=== PATIENT | male | born 1990 | race Caucasian/White ===

== ENCOUNTER 2016-10-06 21:23 | Emergency (ER) | payer SELFPAY ==
[2016-10-06 23:43] LABS: Hematocrit 44 % (42-52); Hemoglobin 14.5 g/dl (14.0-18.0); Mean Corpuscular HGB Conc 33 g/dl (31-36); Mean Corpuscular Hemoglobin 29 pg (27-31); Mean Corpuscular Volume 89 fL (80-94); Mean Platelet Volume 11 um3 (7.4-10.4); Red Blood Count 4.98 10^6/ul (4.0-5.4); Red Cell Distribution Width 14 % (10.5-15); White Blood Count 6.8 10^3/ul (3.5-10.8)
[2016-10-06 23:47] LABS: Add Diff/Slide Review? Slide Review Added; Comments Flag Yes
[2016-10-06 23:59] LABS: Troponin I 0.01 ng/mL (<0.04)
[2016-10-07] LABS: BUN/Creatinine Ratio 16.7 (8-20); Calcium 9.3 mg/dL (8.6-10.3); EGFR African American 113.5 (>60); EGFR Non-African American 88.3 (>60); Globulin 2.2 g/dL (2-4); Total Bilirubin 0.3 mg/dL (0.2-1.0); Total Protein 6.2 g/dL (6.4-8.9)
[2016-10-07 00:33] LABS: TSH (Thyroid Stimulating Horm) 5.46 mcIU/mL (0.34-5.60)
--- NOTE | 2016-10-07 00:50 | ED ---
GI/ HPI - HPI Summary HPI Summary: 26M presents with heart palpations that occurred three days ago and STD testing. He states his palpitations lasted 5 minutes. He states he has had this before but it has never lasted this long. He denies any chest pain or SOB. He denies any dizziness, abdominal pain, n/v/d/c, penile discharge. He states he potential has a rash near his genitalia. - History of Current Complaint Chief Complaint: EDGeneral Time Seen by Provider: 10/06/16 22:14 Stated Complaint: IRREGULAR HEART RATE/STD TEST Pain Intensity: 0 - Allergy/Home Medications Allergies/Adverse Reactions: Allergies Allergy/AdvReac Type Severity Reaction Status Date / Time No Known Allergies Allergy Verified 03/11/12 12:30 PMH/Surg Hx/FS Hx/Imm Hx Cardiovascular History: Denies: Hx Pacemaker/ICD, Other Cardiovascular Problems/Disorders Respiratory History: Denies: Hx Asthma Sensory History: Denies: Hx Hearing Aid Psychiatric History: Denies: Hx Eating Disorder, Hx Panic Disorder - Surgical History Surgery Procedure, Year, and Place: APPY Infectious Disease History: No Infectious Disease History: Denies: Traveled Outside the in Last 30 Days - Family History Known Family History: Negative: Renal Disease - Social History Alcohol Use: None Hx Substance Use: No Substance Use Type: Reports: None, Marijuana Hx Tobacco Use: No Smoking Status (MU): Never Smoked Tobacco Review of Systems Negative: Fever Positive: Palpitations - resolved. Negative: Chest Pain Negative: Shortness Of Breath Positive: Other - STD testing All Other Systems Reviewed And Are Negative: Yes Physical Exam Triage Information Reviewed: Yes Vital Signs On Initial Exam: Initial Vitals Temp Pulse Resp BP Pulse Ox 98.3 F 85 16 145/80 98 10/06/16 21:47 10/06/16 21:47 10/06/16 21:47 10/06/16 21:47 10/06/16 21:47 Vital Signs Reviewed: Yes Appearance: Positive: Well-Appearing Skin: Positive: Warm, Dry Head/Face: Positive: Normal Head/Face Inspection Eyes: Positive: Normal, Conjunctiva Clear Respiratory/Lung Sounds: Positive: Clear to Auscultation, Breath Sounds Present Cardiovascular: Positive: Normal, RRR Abdomen Description: Positive: Nontender, Soft Bowel Sounds: Positive: Present - [place] Coma Scale Coma Scale Total: 15 Diagnostics - Vital Signs Vital Signs Temp Pulse Resp BP Pulse Ox 10/06/16 23:00 84 18 126/72 99 10/06/16 22:50 89 19 130/71 99 10/06/16 22:20 101 22 98 10/06/16 21:47 98.3 F 85 16 145/80 98 - Laboratory Lab Results: Lab Results 10/06/16 10/06/16 Range/Units 23:32 23:32 WBC 6.8 (3.5-10.8) 10^3/ul RBC 4.98 (4.0-5.4) 10^6/ul Hgb 14.5 (14.0-18.0) g/dl Hct 44 (42-52) % MCV 89 (80-94) fL MCH 29 (27-31) pg MCHC 33 (31-36) g/dl RDW 14 (10.5-15) % Plt Count 126 L (150-450) 10^3/ul MPV 11 H (7.4-10.4) um3 Neut % (Auto) 50.8 (38-83) % Lymph % (Auto) 31.6 (25-47) % [place] % (Auto) 13.3 H (1-9) % Eos % (Auto) 3.1 (0-6) % Baso % (Auto) 1.2 (0-2) % Absolute Neuts (auto) 3.4 (1.5-7.7) 10^3/ul Absolute Lymphs (auto) 2.1 (1.0-4.8) 10^3/ul Absolute Monos (auto) 0.9 H (0-0.8) 10^3/ul Absolute Eos (auto) 0.2 (0-0.6) 10^3/ul Absolute Basos (auto) 0.1 (0-0.2) 10^3/ul Absolute Nucleated RBC 0 10^3/ul Nucleated RBC % 0.1 Sodium 138 (133-145) mmol/L Potassium 4.0 (3.5-5.0) mmol/L Chloride 104 (101-111) mmol/L Carbon Dioxide 29 (22-32) mmol/L Anion Gap 5 (2-11) mmol/L BUN 17 (6-24) mg/dL Creatinine 1.02 (0.67-1.17) mg/dL Est GFR ( Amer) 113.5 (>60) Est GFR (Non-Af Amer) 88.3 (>60) BUN/Creatinine Ratio 16.7 (8-20) Glucose 88 (70-100) mg/dL Calcium 9.3 (8.6-10.3) mg/dL Magnesium 2.0 (1.9-2.7) mg/dL Total Bilirubin 0.30 (0.2-1.0) mg/dL AST 14 (13-39) U/L ALT 18 (7-52) U/L Alkaline Phosphatase 70 (34-104) U/L Troponin I 0.01 (<0.04) ng/mL Total Protein 6.2 L (6.4-8.9) g/dL Albumin 4.0 (3.2-5.2) g/dL Globulin 2.2 (2-4) g/dL Albumin/Globulin Ratio 1.8 (1-3) TSH 5.46 (0.34-5.60) mcIU/mL Result Diagrams: 10/06/16 23:32 10/06/16 23:32 Lab Statement: Any lab studies that have been ordered have been reviewed, and results considered in the medical decision making process. GIGU Course/Dx - Course Course Of Treatment: 26M presents with heart palpations that occurred three days ago and STD testing. He states his palpitations lasted 5 minutes. He states he has had this before but it has never lasted this long. He denies any chest pain or SOB. He denies any dizziness, abdominal pain, n/v/d/c, penile discharge. He states he potential has a rash near his genitalia. patient refused to let me look at rash. abdomen soft nontender, lungs CTA. heart RRR. EKG normal. labs normal. no abnormal discharge. was with girlfriend who he believes is not high risk so will wait for cultures to tell him if has STD. patient understands and agrees with plan - Diagnoses Differential Diagnoses - Male: STD, Other - CAD, thyroid Provider Diagnoses: Heart palpitations, Screening for STD (sexually transmitted disease) Discharge - Discharge Plan Condition: Good Disposition: HOME Patient Education Materials: Palpitations (ED) Referrals: Jose Funes MD [Primary Care Provider] - Additional Instructions: Follow up with primary Return to ED if develop any new or worsening symptoms
[2016-10-07 00:58] VITALS: BP 117/72
[2016-10-07 11:38] LABS: Syphilis Index < 0.1 Index
== END 2016-10-07 00:56 | disposition home or self-care (01) ==
LOC: ED 21:23
DX: R00.2 Palpitations (principal); Z11.3 Encounter for screening for infections with a predominantly sexual mode of transmission
CPT/HCPCS: 36415; 80053; 83735; 84443; 84484; 85025; 86592; 86703; 87491; 87591; 93005; 99282

== ENCOUNTER → 2016-11-09 18:29 | Emergency (ER) | payer SELFPAY ==
[~2016-11-09 18:29] MED LIST: Acyclovir* 200 MG CAP PO ONE
[2016-11-09 18:40] VITALS: BP 148/76
[2016-11-09 20:09] LABS: Urine Bacteria Absent (Absent); Urine Bilirubin Negative (Negative); Urine Glucose Negative (Negative); Urine Nitrite Negative (Negative)
--- NOTE | 2016-11-09 21:05 | ED ---
GI/ HPI - HPI Summary HPI Summary: 26M presents with rash on genital area, burning pain. He states he had a new sexual partner and wants to be tested for Stds. He has a history of clamyadia and states that it does not feel the same. He has lesions on the side of his inner thigh. He states he does stand a lot when he works and that the area is never dry. He denies any new products. He denies any fever. He denies any abdominal pain, n/v. - History of Current Complaint Chief Complaint: EDGeneral Time Seen by Provider: 11/09/16 19:40 Stated Complaint: NEEDS LABS Pain Intensity: 0 - Allergy/Home Medications Allergies/Adverse Reactions: Allergies Allergy/AdvReac Type Severity Reaction Status Date / Time No Known Allergies Allergy Verified 03/11/12 12:30 PMH/Surg Hx/FS Hx/Imm Hx Cardiovascular History: Denies: Hx Pacemaker/ICD, Other Cardiovascular Problems/Disorders Respiratory History: Denies: Hx Asthma Sensory History: Denies: Hx Hearing Aid Psychiatric History: Denies: Hx Eating Disorder, Hx Panic Disorder - Surgical History Surgery Procedure, Year, and Place: APPY Infectious Disease History: No Infectious Disease History: Denies: Traveled Outside the [place] in Last 30 Days - Family History Known Family History: Negative: Renal Disease - Social History Alcohol Use: None Hx Substance Use: No Substance Use Type: Reports: None, Marijuana Hx Tobacco Use: No Smoking Status (MU): Never Smoked Tobacco Review of Systems Negative: Fever Negative: Chest Pain Negative: Shortness Of Breath Negative: Abdominal Pain Positive: burning Positive: Rash All Other Systems Reviewed And Are Negative: Yes Physical Exam Triage Information Reviewed: Yes Vital Signs On Initial Exam: Initial Vitals Temp Pulse Resp BP Pulse Ox 97.8 F 77 16 148/76 99 11/09/16 18:33 11/09/16 18:33 11/09/16 18:33 11/09/16 18:33 11/09/16 18:33 Vital Signs Reviewed: Yes Appearance: Positive: Well-Appearing Skin: Positive: Warm, Dry, Other - plaque erythema rash with no warmth on thighs Head/Face: Positive: Normal Head/Face Inspection Eyes: Positive: Normal, Conjunctiva Clear Respiratory/Lung Sounds: Positive: Clear to Auscultation, Breath Sounds Present Cardiovascular: Positive: Normal, RRR Male Genital Exam: Positive: normal genitalia Diagnostics - Vital Signs Vital Signs Temp Pulse Resp BP Pulse Ox 11/09/16 18:33 97.8 F 77 16 148/76 99 - Laboratory Lab Results: Lab Results 11/09/16 Range/Units 19:53 Urine Color Yellow Urine Appearance Clear Urine pH 6.0 (5-9) Ur Specific [place] 1.018 (1.010-1.030) Urine Protein Negative (Negative) Urine Ketones Negative (Negative) Urine Blood 1+ H (Negative) Urine Nitrate Negative (Negative) Urine Bilirubin Negative (Negative) Urine Urobilinogen Negative (Negative) Ur Leukocyte Esterase Negative (Negative) Urine WBC (Auto) Trace(0-5/hpf) (Absent) Urine RBC (Auto) 1+(3-5/hpf) H (Absent) Ur Squamous Epith Cells Present H (Absent) Urine Bacteria Absent (Absent) Urine Glucose Negative (Negative) Lab Statement: Any lab studies that have been ordered have been reviewed, and results considered in the medical decision making process. GIGU Course/Dx - Course Course Of Treatment: 26M presents with rash on genital area, burning pain. He states he had a new sexual partner and wants to be tested for STDs. He has a history of clamyadia and states that it does not feel the same. He has lesions on the side of his inner thigh. He states he does stand a lot when he works and that the area is never dry. He denies any new products. He denies any fever. He denies any abdominal pain, n/v. on exam has erythema rash to thighs, could be contact dermatitis vs early syphilis. will treat with valtrex. told to keep area dry. patient understands and agrees with plan. - Diagnoses Differential Diagnoses - Male: STD, Syphilis, Other - contact dermatitis Provider Diagnoses: Rash of genital area Discharge - Discharge Plan Condition: Good Disposition: HOME Prescriptions: ValACYclovir (*) [Valtrex 1 GM(*)] 1 gm PO BID #14 tab Referrals: Jose Funes MD [Primary Care Provider] - Additional Instructions: Rash could be contact dermatitis vs early herpes Will treat with valtrex twice a day for [address]ortisone on area twice a day Keep area dry Return to ED if develop any new or worsening symptoms
[2016-11-12 10:11] LABS: Syphilis Index < 0.1 Index
== END | disposition home or self-care (01) ==
LOC: ED 18:29
DX: R21 Rash and other nonspecific skin eruption (principal)
CPT/HCPCS: 36415; 81003; 81015; 86592; 86703; 87491; 87591; 99282; A9270-GY

== ENCOUNTER 2017-10-29 16:11 | Emergency (ER) | payer SELFPAY ==
[2017-10-29 16:17] VITALS: BP 152/81
[2017-10-29] MEDS ORDERED: Tetan/Diph/Pertus SYR(Tdap)* 0.5 ML SYR(BOOSTRIX) use SYR IM ONE (16:41)
--- NOTE | 2017-10-29 16:42 | ED ---
Head Injury - HPI Summary HPI Summary: 27 year old male presents with head injury today. He states he struck his head on the bottom of the car. 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 No nausea and no vomiting. No dizziness. No change in vision. No head pain. Doesn't know when his last tetanus is. No medical conditions. He has minimal pain at this point. He states the laceration happened 6 hours ago. No active bleeding. - History Of Current Complaint Chief Complaint: EDLacSutureRecheck Stated Complaint: HEAD INJURY Time Seen by Provider: 10/29/17 16:26 Pain Intensity: 1 - Allergies/Home Medications Allergies/Adverse Reactions: Allergies Allergy/AdvReac Type Severity Reaction Status Date / Time No Known Allergies Allergy Verified 03/11/12 12:30 PMH/Surg Hx/FS Hx/Imm Hx Endocrine/Hematology History: Denies: Hx Anticoagulant Therapy Cardiovascular History: Denies: Hx Pacemaker/ICD, Other Cardiovascular Problems/Disorders Respiratory History: Denies: Hx Asthma Sensory History: Denies: Hx Hearing Aid Psychiatric History: Denies: Hx Eating Disorder, Hx Panic Disorder - Surgical History Surgery Procedure, Year, and Place: APPY Infectious Disease History: No Infectious Disease History: Denies: Traveled Outside the [place] in Last 30 Days - Family History Known Family History: Negative: Renal Disease - Social History Alcohol Use: None Hx Substance Use: No Substance Use Type: Reports: None, Marijuana Hx Tobacco Use: No Smoking Status (MU): Never Smoked Tobacco Review of Systems Negative: Chest Pain Negative: Shortness Of Breath Negative: Vomiting, Nausea Positive: Other - scalp lac Positive: Headache All Other Systems Reviewed And Are Negative: Yes Physical Exam Triage Information Reviewed: Yes Vital Signs On Initial Exam: Initial Vitals Temp Pulse Resp BP Pulse Ox 98.8 F 78 16 152/81 98 10/29/17 16:13 10/29/17 16:13 10/29/17 16:13 10/29/17 16:13 10/29/17 16:13 Vital Signs Reviewed: Yes Appearance: Positive: Well-Appearing Skin: Positive: Warm, Dry, Other - 2cm superficial top of scalp Head/Face: Positive: Normal Head/Face Inspection, Other - No step off, raccoon eyes, hall sign Eyes: Positive: Normal, EOMI, SEVEN, Conjunctiva Clear ENT: Positive: Normal ENT inspection, Pharynx normal, TMs normal Neck: Positive: Other: - Nontender neck, full range of motion neck Respiratory/Lung Sounds: Positive: Clear to Auscultation, Breath Sounds Present Cardiovascular: Positive: Normal, RRR Musculoskeletal: Positive: Normal Neurological: Positive: Sensory/Motor Intact, Alert, Oriented to Person Place, Time, CN Intact II-III Psychiatric: Positive: Normal - [place] Coma Scale Best Eye Response: 4 - Spontaneous Best Motor Response: 6 - Obeys Commands Best Verbal Response: 5 - Oriented Coma Scale Total: 15 Procedures - Laceration/Wound Repair 1 Location: head Description: Linear Anesthesia: Local, 1.0%, Epi Length, Depth and Shape: 2cm superficial Closure: [place] #__ - 2 Diagnostics - Vital Signs Vital Signs Temp Pulse Resp BP Pulse Ox 10/29/17 16:13 98.8 F 78 16 152/81 98 - Laboratory Lab Statement: Any lab studies that have been ordered have been reviewed, and results considered in the medical decision making process. Head Injury Course/Dx Course Of Treatment: 27 year old male presents with head injury today. He states he struck his head on the bottom of the car. 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 No nausea and no vomiting. No dizziness. No change in vision. No head pain. Doesn't know when his last tetanus is. No medical conditions. He has minimal pain at this point. He states the laceration happened 6 hours ago. No active bleeding. On exam normal neuro exam. Has 2 cm superficial laceration of scalp. Clean area and placed 2 gianfranco. gave tetanus. Patient understands agrees the plan. - Diagnoses Differential Diagnosis/HQI/PQRI: Concussion Without LOC, Contusion, Laceration Provider Diagnoses: Scalp laceration, Head injury Discharge - Sign-Out/Discharge Documenting (check all that apply): Patient Departure - Discharge Plan Condition: Good Disposition: HOME Patient Education Materials: Staple Care (ED) Referrals: [facility] [place] [facility] [Outside] Additional Instructions: Take Tylenol or ibuprofen for pain every [address] ice on area Do not scrub staple area Return to ED, urgent care or primary in 7-10 days to have gianfranco removed est care with primary Return to ED if develop signs of infection such as fever, spreading redness, or pus or any new or worsening symptoms - Billing Disposition and Condition Condition: GOOD Disposition: Home
[2017-10-29] MEDS ORDERED: Ibuprofen TAB* 800 MG PO ONE (16:46)
== END 2017-10-29 17:25 | disposition home or self-care (01) ==
LOC: ED 16:11
DX: S01.01XA Laceration without foreign body of scalp, initial encounter (principal); S09.90XA Unspecified injury of head, initial encounter; W22.8XXA Striking against or struck by other objects, initial encounter; Y92.9 Unspecified place or not applicable
CPT/HCPCS: 12001; 90471; 90715; 99282; A9270-GY

== ENCOUNTER 2017-11-06 09:02 | Emergency (ER) | payer SELFPAY ==
[2017-11-06 09:11] VITALS: BP 138/79
--- NOTE | 2017-11-06 09:58 | ED ---
ED Suture/Wound Check - HPI Summary HPI Summary: Patient is a 27-year-old male presenting to the ED with a request for staple removal. He had 2 gianfranco placed on 10/29/17. Tetanus was updated at that time. He endorses pruritus without pain. Denies any purulent drainage from the area. Has been washing the area with soap and water. - History Of Current Complaint Chief Complaint: EDLacSutureRecheck Stated Complaint: NEEDS GIANFRANCO REMOVED Time Seen by Provider: 11/06/17 09:05 Hx Obtained From: Patient Onset/Duration: Sudden Onset Severity: Mild Pain Intensity: 0 Pain Scale Used: 0-10 Numeric - Allergies/Home Medications Allergies/Adverse Reactions: Allergies Allergy/AdvReac Type Severity Reaction Status Date / Time No Known Allergies Allergy Verified 11/06/17 09:11 PMH/Surg Hx/FS Hx/Imm Hx Previously Healthy: Yes Endocrine/Hematology History: Denies: Hx Anticoagulant Therapy Cardiovascular History: Denies: Hx Pacemaker/ICD, Other Cardiovascular Problems/Disorders Respiratory History: Denies: Hx Asthma Sensory History: Denies: Hx Hearing Aid Psychiatric History: Denies: Hx Eating Disorder, Hx Panic Disorder - Surgical History Surgery Procedure, Year, and Place: APPY - Immunization History Hx Pertussis Vaccination: No Immunizations Up to Date: Yes Infectious Disease History: No Infectious Disease History: Denies: Traveled Outside the [place] in Last 30 Days - Family History Known Family History: Negative: Renal Disease - Social History Occupation: Employed Full-time Lives: Alone Alcohol Use: None Hx Substance Use: No Substance Use Type: Reports: None Hx Tobacco Use: No Smoking Status (MU): Never Smoked Tobacco Review of Systems Constitutional: Negative Negative: Fever, Chills, Fatigue, Skin Diaphoresis Negative: Palpitations, Chest Pain Negative: Shortness Of Breath, Cough Genitourinary: Negative Positive: no symptoms reported, see HPI Negative: Arthralgia, Myalgia Positive: Other - 2 gainfranco to scalp Neurological: Negative All Other Systems Reviewed And Are Negative: Yes Physical Exam Triage Information Reviewed: Yes Vital Signs On Initial Exam: Initial Vitals Temp Pulse Resp BP Pulse Ox 97.7 F 80 16 138/79 100 11/06/17 09:08 11/06/17 09:08 11/06/17 09:08 11/06/17 09:08 11/06/17 09:08 Vital Signs Reviewed: Yes Appearance: Positive: Well-Appearing, Well-Nourished Skin: Positive: Warm, Skin Color Reflects Adequate Perfusion, Other - 2 gianfranco atop scalp Head/Face: Positive: Normal Head/Face Inspection Eyes: Positive: EOMI, SEVEN, Conjunctiva Clear Neck: Positive: Supple, No Lymphadenopathy Respiratory/Lung Sounds: Positive: Clear to Auscultation, Breath Sounds Present Cardiovascular: Positive: RRR, Pulses are Symmetrical in both Upper and Lower Extremities Musculoskeletal: Positive: Normal, Strength/ROM Intact Neurological: Positive: Alert, Oriented to Person Place, Time, Speech Normal Psychiatric: Positive: Normal Diagnostics - Vital Signs Vital Signs Temp Pulse Resp BP Pulse Ox 11/06/17 09:08 97.7 F 80 16 138/79 100 - Laboratory Lab Statement: Any lab studies that have been ordered have been reviewed, and results considered in the medical decision making process. Course/Dx - Course Course Of Treatment: 2 gianfranco removed. Patient tolerated well. No antibiotic ointment needed. He will continue to wash the area. - Clinical Impression Provider Diagnoses: Removal of staple Discharge - Sign-Out/Discharge Documenting (check all that apply): Patient Departure - Discharge Plan Condition: Stable Disposition: HOME Referrals: No Primary Care Phys,NOPCP [Primary Care Provider] - - Billing Disposition and Condition Condition: STABLE Disposition: Home
== END 2017-11-06 10:03 | disposition home or self-care (01) ==
LOC: ED 09:02
DX: Z48.02 Encounter for removal of sutures (principal)
CPT/HCPCS: 99281

== ENCOUNTER 2018-01-11 10:31 | Emergency (ER) | payer SELFPAY ==
--- NOTE | 2018-01-11 13:15 | ED ---
Back Pain - HPI Summary HPI Summary: The pt is a 27 y/o male presenting of lower back pain since 3 weeks ago worsened today. He notes difficulties extending his arms secondary to the pain. The pain rated 4/10 is aggravated by lifting heavy objects which he does at work. The pain is described as a sinking feeling at the back. He notes LE pain after resting for a long time and denies incontinence, groin pain, fever, chills, and N/V/D. - History of Current Complaint Chief Complaint: EDBackInjuryPain Stated Complaint: BACK PAIN Time Seen by Provider: 01/11/18 13:05 Hx Obtained From: Patient Onset/Duration: Lasting Weeks - 3 weeks, Still Present Onset/Duration: Started Weeks Ago - 3 weeks, Atraumatic, Still Present Timing: Constant Back Pain Location: Is Discrete @ - Lower back Severity Currently: Mild Pain Intensity: 4 Pain Scale Used: 0-10 Numeric Character: Spasmodic Aggravating Symptom(s): Lifting Associated Signs And Symptoms: Negative: Fever, Numbness, Bladder Incontinence - Allergies/Home Medications Allergies/Adverse Reactions: Allergies Allergy/AdvReac Type Severity Reaction Status Date / Time bee venom protein (honey bee) Allergy Swelling Verified 01/11/18 10:36 PMH/Surg Hx/FS Hx/Imm Hx Endocrine/Hematology History: Denies: Hx Anticoagulant Therapy Cardiovascular History: Denies: Hx Pacemaker/ICD, Other Cardiovascular Problems/Disorders Respiratory History: Denies: Hx Asthma Sensory History: Denies: Hx Deafness Psychiatric History: Denies: Hx Eating Disorder, Hx Panic Disorder - Cancer History Cancer Type, Location and Year: None reported - Surgical History Surgery Procedure, Year, and Place: Appendectomy Infectious Disease History: No Infectious Disease History: Denies: Traveled Outside the [place] in Last 30 Days - Family History Known Family History: Negative: Renal Disease - Social History Occupation: Employed Full-time Lives: With Family Alcohol Use: None Hx Substance Use: No Substance Use Type: Reports: None Hx Tobacco Use: No Smoking Status (MU): Never Smoked Tobacco Review of Systems Negative: Fever, Chills Negative: Vomiting, Diarrhea, Nausea Genitourinary: Negative - Groin pain Negative: incontinence Musculoskeletal: Other - Positive: Lower back pain, LE pain after resting Negative: Numbness All Other Systems Reviewed And Are Negative: Yes Physical Exam - Summary Physical Exam Summary: Appearance: Well-appearing, Well-nourished, lying in bed comfortably Skin: Warm, dry, no obvious rash Eyes: sclera anicteric, no conjunctival pallor ENT: mucous membranes moist, pharynx appears normal Neck: Supple, nontender Respiratory: Clear to auscultation, no signs of respiratory distress Cardiovascular: Normal S1, S2. No murmurs. Normal distal pulses in tibial and radial bilaterally. Abdomen: Soft, nontender, normal active bowel sounds present Musculoskeletal: Paravertebral tenderness and muscle spasms, Strength/ROM Intact Neurological: A&Ox3, awake and alert, mentation is normal, speech is fluent and appropriate Psychiatric: affect is normal, does not appear anxious or depressed Triage Information Reviewed: Yes Vital Signs On Initial Exam: Initial Vitals Temp Pulse Resp BP Pulse Ox 97.4 F 75 16 139/83 99 01/11/18 10:33 01/11/18 10:33 01/11/18 10:33 01/11/18 10:33 01/11/18 10:33 Vital Signs Reviewed: Yes Diagnostics - Vital Signs Vital Signs Temp Pulse Resp BP Pulse Ox 01/11/18 12:46 97.8 F 80 16 126/74 99 01/11/18 10:33 97.4 F 75 16 139/83 99 - Laboratory Lab Statement: Any lab studies that have been ordered have been reviewed, and results considered in the medical decision making process. Back Pain Course/Dx - Course Course Of Treatment: A 27 year-old M presents to the ED with a CC of lower back pain since 3 weeks ago worsened today. The pain is aggravated by lifting heavy objects. He notes LE pain after resting for a long time and denies numbness, urinary incontinence, groin pain, fever, chills, and N/V/D. A physical exam revealed paravertebral tenderness and muscle spasms. Patient will be discharged with a final Dx of acute lower back pain. Pt is agreeable with this plan. Allergies noted. - Diagnoses Provider Diagnoses: Lower back pain Discharge - Sign-Out/Discharge Documenting (check all that apply): Patient Departure - DC - Discharge Plan Condition: Stable Disposition: HOME Prescriptions: Cyclobenzaprine TAB* [Flexeril 10 MG TAB*] 10 mg PO TID PRN #20 tab PRN Reason: Spasms Patient Education Materials: Acute Low Back Pain (ED) Referrals: [facility] [Outside] - Attestation Statements Document Initiated by Scribe: Yes Documenting Scribe: Marva Galloway Provider For Whom Scribe is Documenting (Include Credential): Dr. Ember Kumar MD Scribe Attestation: Marva Petty , scribed for Dr. Ember Kumar MD on 01/11/18 at 1431.
[2018-01-11 13:53] VITALS: BP 137/80
== END 2018-01-11 13:59 | disposition home or self-care (01) ==
LOC: ED 10:31
DX: M54.5 Low back pain (principal)
CPT/HCPCS: 99282

== ENCOUNTER 2019-06-30 10:41 | Emergency (ER) | payer SELFPAY ==
--- NOTE | 2019-06-30 11:09 | UC ---
Abdominal Pain Male HPI - HPI Summary HPI Summary: 29 yo male presents with GI upset. He tells me that on 06/27 he developed a "queasiness" to his stomach and vomited 2-3 times. On 06/28 he developed a headache and had continued vomiting 3-4 times. He had no diarrhea or abdominal pain with this. Last night his nausea improved and he was able to eat crackers and drink soda and water. Today his nausea is mostly gone and his headache is improved, but still present at a 2/10 and frontal in nature. He states that he has a hx of migraines, but has not had one in about 3-4 years. States he thinks imaging of his head was done 3-4 years ago. He did have a head injury at work about a year ago and had gianfranco in his scalp around that time for this. States he is not sure if he had a concussion at that time, but since then he has noticed his headaches seeming to be more frequent and not the same as his prior migraines. He has been taking aspirin for his headache with mild relief, but states this upsets his stomach further. He denies fever, chills, SOB, chest pain, vision changes, dizziness, weakness, numbness, worst headache of life, abdominal pain, diarrhea, constipation, dysuria, back pain. He is requesting a note to return to work today. No recent travel or exposure to known COVID. No cough or SOB. - History of Current Complaint Stated Complaint: NAUSEA,VOMMITING,HEADACHE Time Seen by Provider: 06/30/19 11:09 Hx Obtained From: Patient Onset/Duration: Sudden Onset Severity Initially: Moderate Severity Currently: Mild Pain Intensity: 1 Pain Scale Used: 0-10 Numeric - Allergies/Home Medications Allergies/Adverse Reactions: Allergies Allergy/AdvReac Type Severity Reaction Status Date / Time bee venom protein (honey bee) Allergy Swelling Verified 06/30/19 11:06 Home Medications: Home Medications Aspirin TAB* [Aspirin 325 MG TAB*] 325 mg PO ONCE 06/30/19 [History Confirmed ] PMH/Surg Hx/FS Hx/Imm Hx Neurological History: Migraine Other History Of: Negative For: Anticoagulant Therapy - Surgical History Surgical History: Yes Surgery Procedure, Year, and Place: Appendectomy - Family History Known Family History: Negative: Renal Disease - Social History Occupation: Employed Full-time Lives: With Family Alcohol Use: None Substance Use Type: None Smoking Status (MU): Never Smoked Tobacco Review of Systems All Other Systems Reviewed And Are Negative: No Constitutional: Positive: Negative Skin: Positive: Negative Eyes: Positive: Negative ENT: Positive: Negative Respiratory: Positive: Negative Cardiovascular: Positive: Negative Gastrointestinal: Positive: Vomiting, Nausea Genitourinary: Positive: Negative Neurovascular: Positive: Negative Musculoskeletal: Positive: Negative Neurological/Mental Status: Positive: Headache Psychological: Positive: Negative Physical Exam - Summary Physical Exam Summary: GENERAL: NAD. WDWN. No pain distress. SKIN: No rashes, sores, ulcers, masses, lesions. HEENT: Head: AT/NC. Eyes: PERRLA. EOM intact. Ears: Hearing grossly normal. NECK: Supple. Nontender. FROM CHEST: CTAB. No r/r/w. No accessory muscle use. Breathing comfortably and in no distress. CV: RRR. Pulses intact. Brisk cap refill. ABDOMEN: Soft. NTTP. Bowel sounds present MSK: FROM in B/L UEs and LEs with symmetric strength. NEURO: A&Ox3. 3 word recall, remote, recent memory, ability to follow 2-step directions, and attention intact. CN: II: Peripheral bauman intact. Vision normal. III, IV, : EOMI. No nystagmus. PERRLA. V: Sensations intact and symmetric. Opens mouth and clenches teeth. VII: No facial asymmetry. Forehead wrinkles. Grins, shuts eyes, frowns, puffs cheeks. VIII: Hearing intact to finger rub. IX, X: Swallows and coughs. Uvula midline. XI: Shrugs shoulders. Turns head against resistance. XII: No tongue deviation [id number] are intact. Gait with normal base. Romberg: maintains balance, no pronator drift. Normal speech. No facial drooping. PSYCH: Age appropriate behavior. Triage Information Reviewed: Yes Vital Signs: Vital Signs: Temp Pulse Resp BP Pulse Ox 98.5 F 76 18 150/89 99 06/30/19 11:31 06/30/19 11:31 06/30/19 11:31 06/30/19 11:31 06/30/19 11:31 Vital Signs Reviewed: Yes Diagnostics - Radiology Brain CT Radiology Interpretation Completed By: Radiologist Abd Pain Male Course/Dx - Course Course Of Treatment: Pt suspects he had a bout of "food poisoning", but he had no associated diarrhea or loose stools and had no change in diet or abdominal pain. His headache is improving today, thus this could be from his vomiting over the last day and half, but his hx of more frequent headaches over the last year is concerning for intracranial pathology. I discussed obtaining a head CT today and he was agreeable to this. CT negative as above. VSS and neuro exam without deficits today. Recommend cutting back on soda and drinking more water and advancing his diet as tolerated. Advised to f/u with PCP for routine care. - Differential Dx/Clinical Impression Provider Diagnosis: Vomiting, Headache Discharge ED - Sign-Out/Discharge Documenting (check all that apply): Patient Departure All imaging exams completed and their final reports reviewed: Yes - Discharge Plan Condition: Stable Disposition: HOME Patient Education Materials: Acute Nausea and Vomiting (ED) Forms: *Work Release Referrals: No Primary Care Phys,NOPCP [Primary Care Provider] - [facility] [place] [facility]IAN REFERRAL [Outside] - As Soon As Possible Additional Instructions: Advance your diet as tolerated. I recommend cutting back on soda and sugary drinks Please follow up with a primary doctor for routine care - Billing Disposition and Condition Condition: STABLE Disposition: Home
[2019-06-30 11:31] VITALS: BP 150/89
== END 2019-06-30 12:05 | disposition home or self-care (01) ==
LOC: UCEAST 10:41
DX: R11.2 Nausea with vomiting, unspecified (principal); R51 Headache; Z91.030 Bee allergy status
CPT/HCPCS: 70450; 99211; G0463